=== PATIENT | male | born 1955 | race Caucasian/White ===

== ENCOUNTER 2023-07-05 13:10 | Inpatient (IN) | payer MEDICARE, MEDICAID ==
[2023-07-05] VITALS (7 sets, daily range): BP systolic 151; BP diastolic 68; PULSE 80–115; RESP 16–20; TEMP 97.7; O2SAT 92–98
[~2023-07-05] VITALS: Ht 177.8 cm; Wt 105.9 kg
[~2023-07-05 13:10] MED LIST: ALBUAER3 IN; METF-370 PO; PRED20TA2 PO
[2023-07-05] MEDS: IPRATROPIUM BROM 0.5 MG/2.5ML INH SOL NEB ONE (13:55)
[2023-07-05] MEDS: ALBUTEROL SULF 2.5 MG/0.5ML(0.5%) NEB SOLN NEB ONE (13:55)
[2023-07-05 14:00] LABS: Basophils # (auto) 0.1 10 ^3/uL (0-0.2); Basophils % (auto) 0.7 % (0.0-2.0); Eosinophils # (auto) 0.3 10 ^3/uL (0-0.8); Hematocrit 45.8 % (41.0-53.0); Hemoglobin 15.2 g/dL (13.5-17.5); Lymphocytes # (auto) 1.9 10 ^3/uL (0.4-5.4); Lymphocytes % (auto) 21.4 % (10.0-50.0); Mean Corpuscular Hemoglobin 30.5 pg (28.0-32.0); Mean Corpuscular Hgb Conc. 33.2 g/dL (32.0-36.0); Monocytes # (auto) 0.7 10 ^3/uL (0-1.3); Monocytes % (auto) 7.5 % (0.0-12.0); Neutrophils # (auto) 5.8 10 ^3/uL (1.6-8.6); Neutrophils % (auto) 66.4 % (37.0-80.0); Red Blood Cells 4.98 10^6/uL (4.5-5.90); Red Cell Distribution Width 13.4 % (11.8-14.3); White Blood Cell 8.7 10^3/uL (4.4-10.8)
[2023-07-05 14:19] LABS: Alanine Aminotransferase 16 U/L (7-40); Alkaline Phosphatase 91 U/L (46-116)
[2023-07-05 14:20] LABS: Albumin 4.7 g/dL (3.2-4.8); Anion Gap 3 (5-15); Aspartate Aminotransferase 18 U/L (13-40); BUN/Creatinine Ratio 14.1 (10.0-20.0); Bilirubin, Total 0.5 mg/dL (0.2-1.0); Blood Urea Nitrogen 12 mg/dL (9-23); Calcium 10.2 mg/dL (8.5-10.1); Carbon Dioxide 33 mmol/L (20-30); Chloride 106 mmol/L (98-107); Glucose 126 mg/dL (74-106); Potassium 4.2 mmol/L (3.5-5.1); Sodium 142 mmol/L (136-145); Total Protein 6.6 g/dL (5.7-8.2)
[2023-07-05] MEDS: methylPREDNISolone SOD SUCC 125 MG/2 ML VL IV ONE (14:34)
[2023-07-05] MEDS ORDERED: DOCUSATE SOD 100 MG CAP PO PRN (18:00)
[2023-07-05] MEDS ORDERED: DEXTROSE (50%) 50ML SYRG IV PRN (18:00)
[2023-07-05] MEDS ORDERED: ONDANSETRON HCL 4 MG/2 ML VIAL IV PRN (18:00)
[2023-07-05] MEDS ORDERED: ACETAMINOPHEN 325 MG TAB PO PRN (18:00)
[2023-07-05] MEDS ORDERED: HYDROcodone-ACET 5/325MG TAB PO PRN (18:00)
[2023-07-05] MEDS ORDERED: hydrALAZINE HCL 20 MG/ML VL IV PRN (18:00)
[2023-07-05] MEDS: IPRATROPIUM BROM 0.5 MG/2.5ML INH SOL NEB SCH (18:49)
[2023-07-05] MEDS: levoFLOXacin 500MG 100 ML IV ONE (19:03)
[2023-07-05] MEDS: ALBUTEROL SULF 2.5 MG/0.5ML(0.5%) NEB SOLN NEB SCH (19:30)
[2023-07-05] MEDS: InsuLIN REG 1unit/0.01ml Soln (100units/ml) SC SCH (22:22)
[2023-07-05] MEDS: methylPREDNISolone SOD SUCC 40 MG/ML VL IV SCH (22:22)
[2023-07-05] MEDS: ACCU-CHEK COMFORT CURVE STRIP VI SCH (22:22)
[2023-07-06] VITALS (17 sets, daily range): BP systolic 117–136; BP diastolic 61–68; PULSE 92–104; RESP 18–20; TEMP 97.6–97.8; O2SAT 91–98
[2023-07-06 02:40] LABS: COVID19 ANTIGEN SOFIA FIA NEGATIVE (NEGATIVE)
[2023-07-06 06:30] LABS: Alanine Aminotransferase 13 U/L (7-40); Albumin 4.5 g/dL (3.2-4.8); Alkaline Phosphatase 83 U/L (46-116); Anion Gap 7 (5-15); Aspartate Aminotransferase 14 U/L (13-40); BUN/Creatinine Ratio 11.1 (10.0-20.0); Blood Urea Nitrogen 9 mg/dL (9-23); Carbon Dioxide 29 mmol/L (20-30); Chloride 104 mmol/L (98-107); Glucose 136 mg/dL (74-106); LDL Cholesterol 99 mg/dL (< 100); Sodium 140 mmol/L (136-145); Triglycerides 60 mg/dL (< 150)
[2023-07-06 06:31] LABS: Bilirubin, Total 0.5 mg/dL (0.2-1.0); Cholesterol 181 mg/dL (< 200); HDL Cholesterol 72 mg/dL (40-59); Total Protein 6.7 g/dL (5.7-8.2)
[2023-07-06 06:36] LABS: Basophils # (auto) 0 10 ^3/uL (0-0.2); Basophils % (auto) 0.2 % (0.0-2.0); Eosinophils # (auto) 0 10 ^3/uL (0-0.8); Hematocrit 45.1 % (41.0-53.0); Lymphocytes # (auto) 0.8 10 ^3/uL (0.4-5.4); Lymphocytes % (auto) 5.6 % (10.0-50.0); Mean Corpuscular Hemoglobin 30.7 pg (28.0-32.0); Mean Corpuscular Hgb Conc. 33.2 g/dL (32.0-36.0); Mean Corpuscular Volume 92.4 fL (80.0-100.0); Monocytes # (auto) 0.2 10 ^3/uL (0-1.3); Monocytes % (auto) 1.4 % (0.0-12.0); Neutrophils # (auto) 13.1 10 ^3/uL (1.6-8.6); Neutrophils % (auto) 92.8 % (37.0-80.0); Nucleated Red Blood Cells % 0.1 %; Red Blood Cells 4.88 10^6/uL (4.5-5.90); Red Cell Distribution Width 13.6 % (11.8-14.3); White Blood Cell 14.1 10^3/uL (4.4-10.8)
[2023-07-06] MEDS: PANTOPRAZOLE 40 MG TAB PO SCH (09:13)
[2023-07-06] MEDS: levoFLOXacin 500MG 100 ML IV SCH (09:13)
[2023-07-06] MEDS: NICOTINE 14 MG/24HR TOPICAL PATCH TD ONE (12:07)
[2023-07-06 12:22] LABS: Urine WBC None Seen /hpf (0 - 3)
[2023-07-06 12:52] LABS: Urine Bacteria NONE SEEN /hpf (None Seen); Urine Blood Negative /uL (Negative); Urine Clarity Clear (Clear); Urine Protein, UAD Negative (Negative); Urine Specific Gravity 1.005 (1.001-1.035); Urine Urobilinogen Normal (Negative)
[2023-07-06 12:54] LABS: Urine Color Straw (Yellow)
[2023-07-06] MEDS: guaiFENesin 200 MG/10 ML UD PO PRN (21:35)
[2023-07-07] VITALS (12 sets, daily range): BP systolic 99–123; BP diastolic 41–63; PULSE 54–116; RESP 16–22; TEMP 97.9–98.7; O2SAT 87–100
[2023-07-07] MEDS: NICOTINE 14 MG/24HR TOPICAL PATCH TD SCH (08:49)
[2023-07-07] MEDS ORDERED: METH4PAK PO (11:57)
[2023-07-07] MEDS ORDERED: ALBU108A5 IN (11:57)
[2023-07-07] MEDS ORDERED: LEVO500T91 PO (11:57)
== END 2023-07-07 16:56 | disposition home or self-care (01) | DRG 140 ==
LOC: EDBD 13:10 → ER 13:10 → OVERFLOW 18:02 → WEST WING 22:37
PROVIDERS: ADMIT Nurse Practitioner Family; ATTEND Internal Medicine
DX: J44.1 Chronic obstructive pulmonary disease with (acute) exacerbation (principal); J96.01 Acute respiratory failure with hypoxia; J15.69 Pneumonia due to other Gram-negative bacteria; J15.9 Unspecified bacterial pneumonia; E11.9 Type 2 diabetes mellitus without complications; Z20.822 Contact with and (suspected) exposure to COVID-19; I10 Essential (primary) hypertension; J44.0 Chronic obstructive pulmonary disease with (acute) lower respiratory infection; E78.5 Hyperlipidemia, unspecified; F17.210 Nicotine dependence, cigarettes, uncomplicated; Z91.199 Patient's noncompliance with other medical treatment and regimen due to unspecified reason; Z91.148 Patient's other noncompliance with medication regimen for other reason
CPT/HCPCS: 36415; 36600; 71045; 80053; 80061; 81001; 82805; 82962; 83036; 83605; 83880; 84484; 85025; 85379; 87426; 93005; 94640; G0378; J1815; J1956